=== PATIENT | female | born 1960 | race African-American/Black ===

== ENCOUNTER → 2016-10-16 | Outpatient (CLI) | payer OTHER ==
[~2016-10-16] MED LIST: COZAAR50 MG PO; GLUCOPHAGE500 MG PO; LIPITOR20 MG PO; LYRICA100 MG PO; MOBIC15 MG PO; NAPROSYN500 MG PO; PROTRIPTYLINE HC5 MG PO; TOPAMAX100 MG PO; TOPAMAX25 MG PO; VITAMIN D31000 UNI2 PO
== END | disposition home or self-care (01) ==
LOC: RES 12:45
DX: R06.02 Shortness of breath (principal)
CPT/HCPCS: 94070; 94726; 94729

== ENCOUNTER → 2017-12-21 | Outpatient (CLI) | payer OTHER ==
[~2017-12-21] VITALS: Ht 160 cm; Wt 73.5 kg
[~2017-12-21] MED LIST changes: +HYZAAR 100-11 TABLET PO
== END | disposition home or self-care (01) ==
LOC: AMB 12-07 11:00
PROVIDERS: Internal Medicine
PROC: 0DJD8ZZ Inspection of Lower Intestinal Tract, Via Natural or Artificial Opening Endoscopic (ICD-10-PCS; principal; 2017-12-21)
DX: Z12.11 Encounter for screening for malignant neoplasm of colon (principal); Z83.3 Family history of diabetes mellitus; Z82.3 Family history of stroke; Z82.49 Family history of ischemic heart disease and other diseases of the circulatory system
CPT/HCPCS: 82948; 93005